=== PATIENT | female | born 2005 | race Caucasian/White ===

== ENCOUNTER 2023-05-31 10:24 | Observation (INO) | payer MEDICAID ==
[~2023-05-31] VITALS: Ht 177.8 cm; Wt 108.0 kg
[2023-05-31] MEDS ORDERED: PREN-537 PO (10:32)
[2023-05-31] MEDS: NACL 0.9% 1,000 ML IV SCH (11:21)
== END 2023-05-31 13:30 | disposition home or self-care (01) ==
LOC: MLD 10:24
PROVIDERS: ADMIT Obstetrics & Gynecology; ATTEND Obstetrics & Gynecology
DX: O26.893 Other specified pregnancy related conditions, third trimester (principal); R30.0 Dysuria; R10.2 Pelvic and perineal pain; Z3A.35 35 weeks gestation of pregnancy
CPT/HCPCS: 81000; 96365; G0378; G0379; J0696; J7060

== ENCOUNTER 2023-06-26 19:57 | Inpatient (IN) | payer MEDICAID ==
[~2023-06-26] VITALS: Ht 177.8 cm; Wt 112.5 kg
[~2023-06-26 19:57] MED LIST: PREN-537 PO
[2023-06-26 20:32] VITALS: BP 134/71; PULSE 79; TEMP 98.6
[2023-06-26 23:03] VITALS: BP 135/79; PULSE 61; RESP 18; TEMP 98.3
[2023-06-26] MEDS ORDERED: METHYLERGONOVINE 0.2 MG/ML AMP IM PRN (23:05)
[2023-06-26] MEDS ORDERED: NALBUPHINE 10 MG/ML AMP IVP PRN (23:05)
[2023-06-26] MEDS ORDERED: ONDANSETRON 4 MG/2 ML VIAL IVP PRN (23:05)
[2023-06-26] MEDS ORDERED: AMPICILLIN 2,000 MG in NACL 0.9% MINI-BAG PLUS 100 ML IV SCH (23:05)
[2023-06-26] MEDS ORDERED: CARBOPROST 250 MCG/ML AMP IM PRN (23:05)
[2023-06-26] MEDS: LACTATED RINGERS 1,000 ML IV SCH (23:52)
[2023-06-26] MEDS: AMPICILLIN 2,000 MG VIAL ONE (23:58)
[2023-06-27] MEDS: MISOPROSTOL 25 MCG TAB PO SCH (00:28)
[2023-06-27 00:30] LABS: APPEARANCE,URINE CLEAR (CLEAR); BILIRUBIN,URINE NEGATIVE (NEGATIVE); BLOOD, URINE NEGATIVE (NEGATIVE); COLOR,URINE YELLOW (YELLOW); LEUKOCYTE ESTERASE ,URINE NEGATIVE (NEGATIVE); NITRITE, URINE NEGATIVE (NEGATIVE); PH,URINE 6.5 (5.0-9.0); PROTEIN,URINE NEGATIVE (NEGATIVE); UGLUCOSE 1+ (NEGATIVE); UROBILINOGEN,URINE 0.2 EU/dL (0.2 - 1)
[2023-06-27 00:31] LABS: BASOPHILS % (AUTO) 0.3 % (0.0-2.0); EOSINOPHILS # (AUTO) 0.2 K/uL (0-0.4); EOSINOPHILS % (AUTO) 1.2 % (0.0-4.0); HEMATOCRIT 35.6 % (36-48); HEMOGLOBIN 11.8 g/dL (12.0-16.0); LYMPHOCYTES # (AUTO) 2.9 K/uL (2.5-16.5); LYMPHOCYTES % (AUTO) 22.6 % (20.5-51.1); MEAN CORPUSCULAR HEMOGLOBIN 29 pg (27-31); MEAN CORPUSCULAR HGB CONC 33 g/dL (33-37); MEAN CORPUSCULAR VOLUME 86.2 fL (80-94); MONOCYTES # (AUTO) 1.2 K/uL (0.8-1.0); MONOCYTES % (AUTO) 9.7 % (1.7-9.3); NEUTROPHILS # (AUTO) 8.5 K/uL (1.8-7.7); NEUTROPHILS % (AUTO) 66.2 % (42.2-75.2); PLATELET COUNT (AUTO) 268 K/uL (140-450); RED BLOOD CELL COUNT(AUTO) 4.14 MIL/uL (4.20-5.40); RED CELL DISTRIBUTION WIDTH 15.5 % (11.6-13.7); WHITE BLOOD COUNT (AUTO) 12.8 K/uL (4.5-11.0)
[2023-06-27 00:47] LABS: AMPHETAMINE, URINE NEGATIVE ng/ml (NEG <=1000); BARBITURATE, URINE NEGATIVE ng/ml (NEG <=200); BENZODIAZEPINE, URINE NEGATIVE ng/mL (NEG <=200); CANNABINOID, URINE NEGATIVE ng/mL (NEG <=50); COCAINE, URINE NEGATIVE ng/mL (NEG <=300); OPIATE, URINE NEGATIVE ng/mL (NEG <=2000); PHENCYCLIDINE SCREEN,URINE NEGATIVE ng/mL (NEG <=25)
[2023-06-27 00:47] LABS: ALBUMIN 2.5 g/dL (3.4-5.0); ANION GAP 12.9 (8-16); CALCIUM 8.5 mg/dL (8.5-10.1); CREATININE 0.6 mg/dL (0.6-1.3); POTASSIUM 3.9 mmol/L (3.5-5.1); TOTAL BILIRUBIN 0.1 mg/dL (0.0-1.0); TOTAL PROTEIN, SERUM 6.2 g/dL (6.4-8.2)
[2023-06-27 00:51] LABS: BACTERIA,URINE FEW /HPF (None Seen); RBC,URINE 0-5 /HPF (0-5); SQUAMOUS EPITHELIAL CELL,UR 4-10 (MOD) /LPF (0-3 (FEW)); WBC,URINE 0-5 /HPF (0-5)
[2023-06-27 01:03] LABS: INR 0.95 (0.8-1.2); PARTIAL THROMBOPLASTIN TIME 27.1 secs (22-35.6)
[2023-06-27] MEDS ORDERED: MISOPROSTOL 25 MCG TAB PO SCH (03:00)
[2023-06-27] MEDS: AMPICILLIN 1,000 MG in NACL 0.9% MINI-BAG PLUS 50 ML IV SCH (04:01)
[2023-06-27] MEDS: AMPICILLIN 1,000 MG VIAL ONE ×2 (08:14→19:58)
[2023-06-27] MEDS: NALBUPHINE 10 MG/ML AMP IVP PRN (09:37)
[2023-06-27] MEDS: ONDANSETRON 4 MG/2 ML VIAL IVP PRN (09:37)
[2023-06-27] MEDS ORDERED: AMPICILLIN 1,000 MG VIAL ONE ×4 (16:06→23:47)
[2023-06-27] MEDS ORDERED: OXYTOCIN/0.9 % SODIUM CHLORIDE 500 ML IV SCH (18:55)
[2023-06-27] MEDS ORDERED: ROPIVACAINE 0.2%/NS PREMIX 200 ML EPI ONE (20:35)
[2023-06-27] MEDS: OXYTOCIN/0.9 % SODIUM CHLORIDE 500 ML IV SCH (21:26)
[2023-06-28] MEDS: AMPICILLIN 1,000 MG VIAL ONE (00:01)
[2023-06-28] MEDS ORDERED: METHYLERGONOVINE 0.2 MG TAB PO PRN (02:15)
[2023-06-28] MEDS ORDERED: BENZOCAINE/MENTHOL 20%-0.5% 60 GM CAN TP PRN (02:15)
[2023-06-28] MEDS ORDERED: OXYTOCIN 10 UNITS/ML VIAL IM PRN (02:15)
[2023-06-28] MEDS ORDERED: METHYLERGONOVINE 0.2 MG/ML AMP IM PRN (02:15)
[2023-06-28] MEDS ORDERED: oxyCODONE/APAP 5/325 MG 1 TAB TAB PO PRN (02:15)
[2023-06-28] MEDS ORDERED: TEMAZEPAM 15 MG CAP PO PRN (02:15)
[2023-06-28] MEDS: IBUPROFEN 800 MG TAB PO PRN (08:48)
[2023-06-28] MEDS: DOCUSATE SOD/SENNA 50/8.6 MG 1 TAB PO SCH (21:09)
[2023-06-29 05:41] LABS: HEMATOCRIT 32.5 % (36-48); HEMOGLOBIN 11.1 g/dL (12.0-16.0)
== END 2023-06-29 16:35 | disposition home or self-care (01) | DRG 560 ==
LOC: MLD 19:57 → OBSVTOIN 23:16 → MFCC 06-28 05:35
PROVIDERS: ADMIT Obstetrics & Gynecology; ATTEND Obstetrics & Gynecology
PROC: 10E0XZZ Delivery of Products of Conception, External Approach (ICD-10-PCS; principal; 2023-06-28)
PROC: 0UQGXZZ Repair Vagina, External Approach (ICD-10-PCS; 2023-06-28)
PROC: 10D07Z6 Extraction of Products of Conception, Vacuum, Via Natural or Artificial Opening (ICD-10-PCS; 2023-06-28)
DX: O42.92 Full-term premature rupture of membranes, unspecified as to length of time between rupture and onset of labor (principal); Z37.0 Single live birth; O71.4 Obstetric high vaginal laceration alone; Z3A.38 38 weeks gestation of pregnancy; Z20.822 Contact with and (suspected) exposure to COVID-19
CPT/HCPCS: 36415; 51702; 59200; 76815; 80053; 80305; 81001; 85018; 85025; 85610; 85730; 86592; 86762; 86886; 86900; 86901; 87340; 87653-90; 90715; J0290; J2300; J2405; J2590; J2795; J7120; Q0092